=== PATIENT | male | born 1980 | race Two or more races ===

== ENCOUNTER 2024-12-02 20:03 | Inpatient (IN) | payer OTHER ==
[~2024-12-02] VITALS: Ht 175.3 cm; Wt 136.1 kg
[2024-12-02] MEDS ORDERED: COZAAR50 MG PO (20:26)
[2024-12-02] MEDS ORDERED: TOPROL XL100 M1 PO (20:26)
--- NOTE | 2024-12-02 20:40 | NUR ---
PACIENTE ALERTA Y ORIENTADO X3. REFIERE DOLOR ABDOMINAL, KATHLEEN EN LA ORINA Y AL EVACUAR. PACIENTE CON HX DE DIVERTICULITIS. SE ESTIMAN VITALES Y SE UBICA.
[2024-12-02] MEDS ORDERED: FAMOtidine 10 MG/ML (4ML VIAL) IV ONE (21:00)
[2024-12-02] MEDS ORDERED: TRAMADOL HCL 50 MG TABLET PO ONE (21:00)
--- NOTE | 2024-12-02 21:12 | NUR ---
SE EDUCA A PTE SOBRE [place] MEDICO, SE FABIENNE MUESTRAS DE LABORATORIO UTILIZANDO MEDIDAS ASEPTICAS. SE COLOCA H/L GABY DE EDEMA. SE ADMINISTRAN MEDICAMENTOS ARSALAN ORDEN MEDICA, PTE TOLERA LOS MISMOS. SE NOTIFICA ESTUDIO DE CT IV PENDIENTE A REALIZAR.
[2024-12-02 21:17] LABS: HEMATOCRIT 39.9 % (39.0-48.0); HEMOGLOBIN 12.7 g/dL (13-16.00); MEAN CELL VOLUME 84.7 fL (80.0-100.00); MEAN CORPUSCULAR HGB CONC 31.8 g/dl (32.0-36.0); PLATELET COUNT 314 K/uL (150-450); RED BLOOD COUNT 4.71 M/uL (4.00-6.00); RED CELL DISTRIBUTION WIDTH 19.5 % (11.5-14.5)
[2024-12-02 21:40] LABS: INR 1.18; PARTIAL THROMBOPLASTIN TIME 26.5 SECONDS (22.0-34.0); PROTHROMBIN TIME 12.7 SECONDS (9.0-11.5)
[2024-12-02 21:43] LABS: ALBUMIN 3.3 gm/dL (3.4-5.0); BILIRUBIN TOTAL 0.42 mg/dL (0.3-1.2); CALCIUM 9.2 mg/dL (8.5-10.1); CREATININE SERUM 1.01 mg/dL (0.70-1.30); GFR 79.53; GLOBULINA 4.5 G/DL (2.4-3.5); POTASSIUM 4.27 mEq/L (3.5-5.1); TOTAL PROTEIN 7.8 gm/dL (6.4-8.2)
[2024-12-03 05:02] LABS: URINE APPEARANCE Clear; URINE BILIRRUBIN Negative (NEGATIVE); URINE BLOOD Negative; URINE COLOR Yellow; URINE GLUCOSE Negative (NEGATIVE); URINE KETONE Negative (NEGATIVE); URINE LEUKOCYTE Negative; URINE NITRATE Negative; URINE PROTEIN Negative (NEGATIVE); URINE UROBILINOGEN 0.2 E.U./dl
[2024-12-03 05:03] LABS: URINE BACTERIA 20.7 uL (0.0-1933); URINE EPITHELIAL CELLS 3.3 uL (0.0-38.8); URINE WBC 3.4 uL (0.0-23.2)
[2024-12-03 05:19] LABS: URINE RBC 1.4 uL (0.0-20.8)
[2024-12-03] MEDS ORDERED: KETOROLAC TROMETHAMINE 30 MG VIAL IV STA (06:49)
[2024-12-03] MEDS ORDERED: PIPERACILLIN/TAZOBACTAM SODIUM 3.375 GM VIAL IV STA (06:50)
[2024-12-03] MEDS ORDERED: 0.9 % SODIUM CHLORIDE 1,000 ML IV STA (06:58)
[2024-12-03] MEDS ORDERED: MORPHINE SULFATE 4 MG/ML VIAL IV STA (06:58)
[2024-12-03] MEDS ORDERED: HYOSCYAMINE SULFATE 0.125 MG TAB.SUBL SL ONE (07:00)
--- NOTE | 2024-12-03 07:22 | NUR ---
SE RECIBE PACIENTE DEL TURNO ANTERIOR QUE SE ENCUENTRA ALERTA Y ORIENTADO X3. CANALIZADO EN RA CON #[id number], PATENTE GABY DE EDEMA Y PROCESOS INFECCIOSOS. SE MANTIENE EN OBSERVACION POR CAMBIOS SIGNIFICATIVOS.
[2024-12-03] MEDS ORDERED: ONDANSETRON HCL 4 MG in 0.9 % SODIUM CHLORIDE 50 ML IV PRN (17:30)
[2024-12-03] MEDS ORDERED: KETOROLAC TROMETHAMINE 30 MG VIAL IV PRN (17:30)
[2024-12-03] MEDS ORDERED: 0.9 % SODIUM CHLORIDE 1,000 ML IV SCH (17:30)
[2024-12-03] MEDS ORDERED: ACETAMINOPHEN 325 MG TABLET PO PRN (17:30)
[2024-12-03] MEDS ORDERED: MORPHINE SULFATE 4 MG/ML VIAL IV PRN (17:30)
[2024-12-03] MEDS ORDERED: hydrALAZINE HCL 20 MG VIAL IV PRN (17:45)
[2024-12-03] MEDS ORDERED: PIPERACILLIN/TAZOBACTAM SODIUM 3.375 GM in DEXTROSE 5 % IN WATER 100 ML IV SCH (18:00)
[2024-12-03] MEDS ORDERED: DIPHENHYDRAMINE HCL 12.5 MG/5 ML BLIST.PACK PO ONE (18:15)
[2024-12-03 18:34] VITALS: BP 160/96; O2SAT 99
[2024-12-03 19:34] LABS: COVID-19 AG NEGATIVE (NEGATIVE)
[2024-12-03 22:43] VITALS: BP 152/80; O2SAT 98
[2024-12-04 00:55] VITALS: BP 122/82; O2SAT 96
[2024-12-04] MEDS ORDERED: ACETAMINOPHEN 500 MG GEL..CAP PO PRN (07:15)
[2024-12-04] MEDS ORDERED: MORPHINE SULFATE 4 MG/ML CARTRIDGE IV PRN (07:15)
[2024-12-04 08:25] VITALS: BP 174/114
[2024-12-04] MEDS ORDERED: LOSARTAN POTASSIUM 50 MG TABLET PO SCH (09:00)
[2024-12-04] MEDS ORDERED: ENOXAPARIN SODIUM 40 MG/0.4 ML SYRINGE SUBCUTANEO SCH (09:00)
[2024-12-04 10:50] VITALS: BP 152/93
[2024-12-04] MEDS ORDERED: AMLODIPINE BESYLATE 5 MG TABLET PO STA (12:08)
[2024-12-04 14:38] VITALS: BP 146/97
[2024-12-04 16:23] VITALS: BP 136/92
[2024-12-05 01:30] VITALS: BP 157/106; O2SAT 100
[2024-12-05 08:49] VITALS: BP 154/102; O2SAT 96
[2024-12-05] MEDS ORDERED: LOSARTAN POTASSIUM 50 MG TABLET PO SCH (09:00)
[2024-12-05] MEDS ORDERED: AMLODIPINE BESYLATE 5 MG TABLET PO SCH (09:00)
[2024-12-05 17:52] VITALS: BP 149/95; O2SAT 98
[2024-12-06 02:47] VITALS: BP 153/107; O2SAT 97
[2024-12-06] MEDS ORDERED: LOSARTAN POTASSIUM 100 MG TABLET PO SCH (09:00)
[2024-12-06] MEDS ORDERED: AMLODIPINE BESYLATE 10 MG TABLET PO SCH (09:00)
[2024-12-06 09:58] VITALS: BP 164/11; BP 164/111; O2SAT 98
[2024-12-06 11:05] LABS: free psa 0.02 ng/mL; total psa 0.2 ng/mL (0.0-4.0)
[2024-12-06] MEDS ORDERED: LACTOBACILLUS ACIDOPHILUS 1 CAP CAP PO SCH ×2 (17:00→21:00)
[2024-12-06] MEDS ORDERED: FAMOTIDINE/PF 20 MG in 0.9 % SODIUM CHLORIDE 100 ML IV SCH (17:00)
[2024-12-06] MEDS ORDERED: TRAMADOL HCL 50 MG TABLET PO SCH (17:04)
[2024-12-06 18:34] VITALS: BP 141/94
[2024-12-07 01:53] VITALS: BP 142/85; O2SAT 98
[2024-12-07 07:33] LABS: HEMOGLOBIN 12.9 g/dL (13-16.00); MEAN CELL VOLUME 83.6 fL (80.0-100.00); MEAN CORPUSCULAR HGB CONC 32.2 g/dl (32.0-36.0); PLATELET COUNT 260 K/uL (150-450); RED BLOOD COUNT 4.78 M/uL (4.00-6.00); RED CELL DISTRIBUTION WIDTH 19.1 % (11.5-14.5)
[2024-12-07 08:01] LABS: ALBUMIN 3.2 gm/dL (3.4-5.0); CALCIUM 8.6 mg/dL (8.5-10.1); CREATININE SERUM 0.64 mg/dL (0.70-1.30); GFR 134.64; MAGNESIUM 1.8 mg/dL (1.8-2.4); POTASSIUM 3.81 mEq/L (3.5-5.1)
[2024-12-07 08:05] LABS: C-REACTIVE PROTEIN 0.68 MG/DL (0.00-0.29)
[2024-12-07 08:15] VITALS: BP 148/94
[2024-12-07 08:23] LABS: ERYTHROCYTE SEDIMENTATION RATE 68 mm/hr
[2024-12-07] MEDS ORDERED: BARIUM SULFATE 450 ML ORAL.SUSP PO NR (10:30)
[2024-12-07] MEDS ORDERED: DIATRIZOATE MEGLUMINE, SODIUM 30 ML BOTTLE PO NR (11:00)
[2024-12-07 17:17] VITALS: BP 148/90
[2024-12-08 02:06] VITALS: BP 157/85; O2SAT 98
[2024-12-08 08:03] VITALS: BP 146/99
[2024-12-08] MEDS ORDERED: DIPHENHYDRAMINE HCL 50 MG/ML VIAL 1ML IV PRN (13:15)
[2024-12-08 17:35] VITALS: BP 144/97
[2024-12-09 02:35] VITALS: BP 127/89; O2SAT 98
[2024-12-09 10:00] VITALS: BP 142/90; O2SAT 97
[2024-12-09 18:19] VITALS: BP 138/93
[2024-12-09 22:25] LABS: ABG PH 7.421 (7.35-7.45); ABG PO2 83.3 mmHg (80-100); ABG pCO2 40.6 mmHg (35-45); BASE EXCESS 1.3 mmol/l; BICARBONATE 25.8 mmol/l (23-25); Tco2 27.1 mmol/l; allen test SATISFACTORY; mode ROOM AIR; o2 21 %; puncture site RADIAL LEFT
[2024-12-09 22:26] LABS: SaO2 96.4 %
[2024-12-10 02:32] VITALS: BP 149/97; O2SAT 98
[2024-12-10 03:30] VITALS: BP 135/85
[2024-12-10 08:22] LABS: CALCIUM 9.2 mg/dL (8.5-10.1); CREATININE SERUM 0.98 mg/dL (0.70-1.30); GFR 82.34; POTASSIUM 4.15 mEq/L (3.5-5.1)
[2024-12-10 10:00] VITALS: BP 166/83; O2SAT 98
[2024-12-10 14:48] LABS: HEMATOCRIT 41.7 % (39.0-48.0); HEMOGLOBIN 13.6 g/dL (13-16.00); MEAN CELL VOLUME 82.4 fL (80.0-100.00); MEAN CORPUSCULAR HEMOGLOBIN 26.9 pg (27.00-32.0); MEAN CORPUSCULAR HGB CONC 32.7 g/dl (32.0-36.0); PLATELET COUNT 272 K/uL (150-450); RED BLOOD COUNT 5.06 M/uL (4.00-6.00); RED CELL DISTRIBUTION WIDTH 19.8 % (11.5-14.5)
[2024-12-10 17:35] LABS: ob NEGATIVE (NEGATIVE)
[2024-12-10 20:08] VITALS: BP 151/100; O2SAT 98
[2024-12-11 01:39] VITALS: BP 157/104
[2024-12-11 09:39] VITALS: BP 140/90
[2024-12-11] MEDS ORDERED: KETOROLAC TROMETHAMINE 30 MG VIAL IV SCH (13:00)
[2024-12-11] MEDS ORDERED: MORPHINE SULFATE 4 MG/ML VIAL IV PRN (15:30)
[2024-12-11] MEDS ORDERED: NIFEDIPINE 30 MG TAB.SA.OSM PO SCH (17:00)
[2024-12-11 17:44] VITALS: BP 166/103; O2SAT 98
[2024-12-11 22:24] VITALS: BP 142/85
[2024-12-12 01:34] VITALS: BP 150/98
[2024-12-12 03:03] LABS: PH,URINE 6.5 (5.0-8.0); URINE APPEARANCE Clear; URINE BILIRRUBIN Negative (NEGATIVE); URINE BLOOD Negative; URINE COLOR Yellow; URINE GLUCOSE Negative (NEGATIVE); URINE KETONE Negative (NEGATIVE); URINE LEUKOCYTE Negative; URINE NITRATE Negative; URINE PROTEIN Trace (NEGATIVE)
[2024-12-12 03:07] LABS: URINE BACTERIA 20.7 uL (0.0-1933); URINE EPITHELIAL CELLS 8.5 uL (0.0-38.8); URINE RBC 2.9 uL (0.0-20.8); URINE WBC 18.1 uL (0.0-23.2)
[2024-12-12] MEDS ORDERED: MORPHINE SULFATE 4 MG,MORPHINE SULFATE 2 MG IV PRN (07:57)
[2024-12-12 08:32] VITALS: BP 159/91; O2SAT 95
[2024-12-12] MEDS ORDERED: BISACODYL 5 MG TABLET.EC PO NR ×2 (11:30→13:00)
[2024-12-12 12:30] LABS: HEMOGLOBIN 15.4 g/dL (13-16.00); MEAN CELL VOLUME 82.7 fL (80.0-100.00); MEAN CORPUSCULAR HEMOGLOBIN 27.1 pg (27.00-32.0); MEAN CORPUSCULAR HGB CONC 32.8 g/dl (32.0-36.0); PLATELET COUNT 296 K/uL (150-450); RED BLOOD COUNT 5.69 M/uL (4.00-6.00); RED CELL DISTRIBUTION WIDTH 20.1 % (11.5-14.5)
[2024-12-12 12:58] LABS: ALBUMIN 3.9 gm/dL (3.4-5.0); CALCIUM 9.4 mg/dL (8.5-10.1); GFR 80.44; MAGNESIUM 2.1 mg/dL (1.8-2.4); PHOSPHOROUS 3.9 mg/dL (2.5-4.9); POTASSIUM 4.06 mEq/L (3.5-5.1)
[2024-12-12] MEDS ORDERED: POLYETHYLENE GLYCOL 3350 238 GM POWDER PO NR (13:00)
[2024-12-12 18:22] VITALS: BP 122/85; O2SAT 97
[2024-12-12] MEDS ORDERED: PEG3350/SOD SULF,BICARB,CL/KCL 4,000 ML GALLON PO ONE (20:45)
[2024-12-13 01:18] VITALS: BP 122/91
[2024-12-13] MEDS ORDERED: NA PHOS,M-B/NA PHOS,DI-BA 1 BOTTLE ENEMA RECTAL STA (08:43)
[2024-12-13 08:51] VITALS: BP 129/98
[2024-12-13] MEDS ORDERED: MIDAZOLAM HCL 2 MG/2 ML VIAL IV ONE (14:30)
[2024-12-13] MEDS ORDERED: fentaNYL CITRATE 50 MCG/ML AMPUL IV PUSH ONE (14:30)
[2024-12-13] MEDS ORDERED: FLUMAZENIL 0.5 MG/5 ML ML IV ONE (14:30)
[2024-12-13] MEDS ORDERED: DIPHENHYDRAMINE HCL 50 MG/ML VIAL 1ML IV ONE (14:30)
[2024-12-13] MEDS ORDERED: POLYETHYLENE GLYCOL 3350 17 GM BLIST.PACK PO SCH (17:00)
[2024-12-13 17:12] VITALS: BP 115/64; O2SAT 100
[2024-12-14 01:02] VITALS: BP 121/87
[2024-12-14 08:54] VITALS: BP 128/83; O2SAT 96
[2024-12-14 17:22] VITALS: BP 130/89
[2024-12-14] MEDS ORDERED: BISACODYL 5 MG TABLET.EC PO STA (19:49)
[2024-12-14] MEDS ORDERED: PEG3350/SOD SULF,BICARB,CL/KCL 4,000 ML GALLON PO STA (19:49)
[2024-12-14] MEDS ORDERED: BISACODYL 5 MG TABLET.EC PO ONE ×2 (20:24→20:48)
[2024-12-14] MEDS ORDERED: PEG3350/SOD SULF,BICARB,CL/KCL 4,000 ML GALLON PO ONE (20:25)
[2024-12-15 01:11] VITALS: BP 152/84
[2024-12-15 09:50] VITALS: BP 118/76; O2SAT 100
[2024-12-15] MEDS ORDERED: ENOXAPARIN SODIUM 40 MG/0.4 ML SYRINGE SUBCUTANEO SCH (20:30)
[2024-12-15 21:14] VITALS: BP 164/97
[2024-12-16 02:45] VITALS: BP 108/77; O2SAT 92
[2024-12-16 08:28] LABS: HEMATOCRIT 39.3 % (39.0-48.0); HEMOGLOBIN 12.8 g/dL (13-16.00); MEAN CELL VOLUME 83.1 fL (80.0-100.00); MEAN CORPUSCULAR HGB CONC 32.5 g/dl (32.0-36.0); PLATELET COUNT 238 K/uL (150-450); RED BLOOD COUNT 4.73 M/uL (4.00-6.00); RED CELL DISTRIBUTION WIDTH 19.7 % (11.5-14.5)
[2024-12-16 08:52] LABS: ALBUMIN 2.9 gm/dL (3.4-5.0); BILIRUBIN TOTAL 1.15 mg/dL (0.3-1.2); CALCIUM 8.4 mg/dL (8.5-10.1); CREATININE SERUM 0.84 mg/dL (0.70-1.30); GFR 98.37; GLOBULINA 3.7 G/DL (2.4-3.5); POTASSIUM 3.78 mEq/L (3.5-5.1); TOTAL PROTEIN 6.6 gm/dL (6.4-8.2)
[2024-12-16 09:06] VITALS: BP 131/78; O2SAT 95
[2024-12-16] MEDS ORDERED: SIMETHICONE 125 MG CAPSULE PO NR (11:00)
[2024-12-16] MEDS ORDERED: ONDANSETRON HCL 2 MG/ML VIAL ONE (16:52)
[2024-12-16 18:07] VITALS: BP 155/97
[2024-12-16] MEDS ORDERED: MEROPENEM 1,000 MG VIAL IV SCH (19:10)
[2024-12-16] MEDS ORDERED: MEROPENEM 1,000 MG VIAL IV STA (19:10)
[2024-12-16] MEDS ORDERED: MORPHINE SULFATE 4 MG/ML CARTRIDGE IV PRN (19:13)
[2024-12-16 22:31] VITALS: BP 127/86
[2024-12-16] MEDS ORDERED: MORPHINE SULFATE 4 MG/ML CARTRIDGE IV SCH (22:45)
[2024-12-17 02:00] VITALS: BP 123/85; O2SAT 95
[2024-12-17] MEDS ORDERED: SIMETHICONE 125 MG CAPSULE PO SCH (09:00)
[2024-12-17] MEDS ORDERED: MEROPENEM 500 MG/VIAL VIAL IV NR (09:00)
[2024-12-17 09:08] VITALS: BP 110/72; O2SAT 95
[2024-12-17] MEDS ORDERED: MEROPENEM 500 MG/VIAL VIAL IV SCH (14:00)
[2024-12-17 18:57] VITALS: BP 125/92
[2024-12-18 01:42] VITALS: BP 126/88; O2SAT 98
[2024-12-18 06:30] LABS: HEMATOCRIT 38.5 % (39.0-48.0); HEMOGLOBIN 12.4 g/dL (13-16.00); MEAN CELL VOLUME 85.6 fL (80.0-100.00); MEAN CORPUSCULAR HEMOGLOBIN 27.5 pg (27.00-32.0); MEAN CORPUSCULAR HGB CONC 32.1 g/dl (32.0-36.0); PLATELET COUNT 268 K/uL (150-450)
[2024-12-18 07:27] LABS: CREATININE SERUM 0.67 mg/dL (0.70-1.30); GFR 127.7; PHOSPHOROUS 3.9 mg/dL (2.5-4.9); POTASSIUM 4.68 mEq/L (3.5-5.1)
[2024-12-18 09:33] VITALS: BP 124/89; O2SAT 99
[2024-12-18] MEDS ORDERED: EMOLLIENTS 6 OZ BOTTLE TOP SCH (17:00)
[2024-12-18 19:16] VITALS: BP 168/90
[2024-12-18] MEDS ORDERED: CYCLOBENZAPRINE HCL 5 MG TABLET PO SCH (21:00)
[2024-12-19 02:41] VITALS: BP 113/76; O2SAT 98
[2024-12-19 08:58] VITALS: BP 131/85; O2SAT 95
[2024-12-19 14:06] LABS: HEMATOCRIT 45.2 % (39.0-48.0); HEMOGLOBIN 14.6 g/dL (13-16.00); MEAN CORPUSCULAR HEMOGLOBIN 27.2 pg (27.00-32.0); MEAN CORPUSCULAR HGB CONC 32.3 g/dl (32.0-36.0); PLATELET COUNT 395 K/uL (150-450); RED BLOOD COUNT 5.38 M/uL (4.00-6.00); RED CELL DISTRIBUTION WIDTH 19.4 % (11.5-14.5)
[2024-12-19 14:38] LABS: INR 1.11; PARTIAL THROMBOPLASTIN TIME 29.5 SECONDS (22.0-34.0)
[2024-12-19 15:28] LABS: CALCIUM 9.9 mg/dL (8.5-10.1); CREATININE SERUM 0.71 mg/dL (0.70-1.30); GFR 119.44; POTASSIUM 4.89 mEq/L (3.5-5.1)
[2024-12-19 17:00] VITALS: BP 125/87; O2SAT 95
[2024-12-20 03:05] VITALS: BP 125/77; O2SAT 99
[2024-12-20 09:16] VITALS: BP 122/86
[2024-12-20] MEDS ORDERED: LIDOCAINE HCL 1%/EPINEPHRINE 20ML VIAL IJ ONE (11:14)
[2024-12-20] MEDS ORDERED: BUPIVACAINE HCL/Mpf 0.5% 10ML VIAL ONE (11:14)
[2024-12-20] MEDS ORDERED: CEFTRIAXONE SODIUM 2,000 MG VIAL ONE (13:12)
[2024-12-20] MEDS ORDERED: METRONIDAZOLE/SODIUM CHLORIDE 500 MG/100 ML PIGGYBACK IV ONE (13:12)
[2024-12-20] MEDS ORDERED: SUGAMMADEX SODIUM 200 MG/2 ML VIAL IV ONE ×2 (18:54→20:00)
[2024-12-20] MEDS ORDERED: RINGERS SOLUTION,LACTATED 1,000 ML IV SCH (20:00)
[2024-12-20] MEDS ORDERED: MORPHINE SULFATE 8 MG,MORPHINE SULFATE 2 MG IV SCH (21:00)
[2024-12-20] MEDS ORDERED: MORPHINE SULFATE 4 MG/ML CARTRIDGE IV SCH (21:00)
[2024-12-20 22:00] LABS: HEMATOCRIT 42.7 % (39.0-48.0); HEMOGLOBIN 13.8 g/dL (13-16.00); MEAN CELL VOLUME 83.1 fL (80.0-100.00); MEAN CORPUSCULAR HEMOGLOBIN 26.9 pg (27.00-32.0); MEAN CORPUSCULAR HGB CONC 32.4 g/dl (32.0-36.0); PLATELET COUNT 377 K/uL (150-450); RED BLOOD COUNT 5.14 M/uL (4.00-6.00); RED CELL DISTRIBUTION WIDTH 18.8 % (11.5-14.5)
[2024-12-20 22:05] LABS: ALBUMIN 2.9 gm/dL (3.4-5.0); CALCIUM 9.1 mg/dL (8.5-10.1); CREATININE SERUM 0.82 mg/dL (0.70-1.30); GFR 101.15; PHOSPHOROUS 4.9 mg/dL (2.5-4.9); POTASSIUM 4.32 mEq/L (3.5-5.1)
[2024-12-20 22:32] VITALS: BP 119/95
[2024-12-20] MEDS ORDERED: MORPHINE SULFATE 4 MG/ML CARTRIDGE IV STA (22:37)
[2024-12-20] MEDS ORDERED: fentaNYL 25 MCG PATCH.TD72 TD SCH (23:15)
[2024-12-21] VITALS (10 sets, daily range): BP systolic 131–160; BP diastolic 82–115; O2SAT 93–98
[2024-12-21] MEDS ORDERED: ACETAMINOPHEN 500 MG GEL..CAP PO SCH
[2024-12-21] MEDS ORDERED: GABAPENTIN 300 MG CAPSULE PO SCH (01:00)
[2024-12-21] MEDS ORDERED: ALBUTEROL SULFATE 3 ML/2.5 MG AMPUL.NEB IH SCH (01:00)
[2024-12-21] MEDS ORDERED: MORPHINE SULFATE 4 MG/ML CARTRIDGE IV SCH (01:00)
[2024-12-21 08:22] LABS: HEMOGLOBIN 13.3 g/dL (13-16.00); MEAN CELL VOLUME 83.6 fL (80.0-100.00); MEAN CORPUSCULAR HEMOGLOBIN 27.1 pg (27.00-32.0); MEAN CORPUSCULAR HGB CONC 32.4 g/dl (32.0-36.0); PLATELET COUNT 368 K/uL (150-450)
[2024-12-21 08:40] LABS: ALBUMIN 2.6 gm/dL (3.4-5.0); CALCIUM 8.5 mg/dL (8.5-10.1); CREATININE SERUM 0.65 mg/dL (0.70-1.30); GFR 132.25; MAGNESIUM 1.7 mg/dL (1.8-2.4); PHOSPHOROUS 3.8 mg/dL (2.5-4.9); POTASSIUM 4.12 mEq/L (3.5-5.1)
[2024-12-21] MEDS ORDERED: POLYETHYLENE GLYCOL 3350 17 GM BLIST.PACK PO SCH (09:00)
[2024-12-21] MEDS ORDERED: MAGNESIUM CHLORIDE 70 MG TABLET.DR PO SCH (09:00)
[2024-12-21] MEDS ORDERED: MEPERIDINE HCL/PF 50 MG/ML VIAL IM PRN (12:30)
[2024-12-21] MEDS ORDERED: MEPERIDINE HCL/PF 50 MG/ML VIAL IM SCH (13:00)
[2024-12-21] MEDS ORDERED: METOPROLOL TARTRATE 25 MG TABLET PO SCH (14:00)
[2024-12-21] MEDS ORDERED: MEPERIDINE HCL/PF 50 MG/ML VIAL IM STA (16:29)
[2024-12-21] MEDS ORDERED: ENOXAPARIN SODIUM 40 MG/0.4 ML SYRINGE SUBCUTANEO SCH (17:00)
[2024-12-21] MEDS ORDERED: MAGNESIUM SULFATE 50% 1,000 MG/2 ML VIAL IV ONE (20:30)
[2024-12-21] MEDS ORDERED: FAMOtidine 20 MG TABLET PO SCH (20:30)
[2024-12-22] VITALS (12 sets, daily range): BP systolic 113–155; BP diastolic 71–93; O2SAT 92–95
[2024-12-22 08:01] LABS: HEMOGLOBIN 12.5 g/dL (13-16.00); MEAN CELL VOLUME 83.5 fL (80.0-100.00); MEAN CORPUSCULAR HEMOGLOBIN 26.7 pg (27.00-32.0); PLATELET COUNT 290 K/uL (150-450); RED BLOOD COUNT 4.67 M/uL (4.00-6.00); RED CELL DISTRIBUTION WIDTH 18.7 % (11.5-14.5)
[2024-12-22 08:11] LABS: ALBUMIN 2.1 gm/dL (3.4-5.0); CALCIUM 7.8 mg/dL (8.5-10.1); CREATININE SERUM 0.6 mg/dL (0.70-1.30); GFR 145.05; MAGNESIUM 1.9 mg/dL (1.8-2.4); PHOSPHOROUS 2.9 mg/dL (2.5-4.9); POTASSIUM 3.86 mEq/L (3.5-5.1)
[2024-12-22] MEDS ORDERED: METOPROLOL TARTRATE 25 MG TABLET PO SCH (13:00)
[2024-12-22] MEDS ORDERED: METOPROLOL TARTRATE 5MG/5ML AMPUL IV STA (13:38)
[2024-12-22] MEDS ORDERED: POTASSIUM PHOS,M-BASIC-D-BASIC 15 MM in 0.9 % SODIUM CHLORIDE 250 ML IV NR (17:00)
[2024-12-22] MEDS ORDERED: MAGNESIUM SULFATE IN WATER 2 GM/50 ML PIGGYBAG IV NR (17:00)
[2024-12-22] MEDS ORDERED: IPRATROPIUM BROMIDE 0.5 MG/2.5 ML AMPUL.NEB IH SCH (17:00)
[2024-12-22] MEDS ORDERED: FAMOTIDINE/PF 20 MG/2 ML VIAL IV PUSH SCH (17:00)
[2024-12-22] MEDS ORDERED: 0.9 % SODIUM CHLORIDE 500 ML IV ONE (18:15)
[2024-12-22] MEDS ORDERED: DILTIAZEM HCL 125 MG in 0.9 % SODIUM CHLORIDE 100 ML IV SCH (18:28)
[2024-12-23] VITALS (19 sets, daily range): BP systolic 104–2120; BP diastolic 66–99; O2SAT 92–98
[2024-12-23 07:35] LABS: HEMATOCRIT 39.5 % (39.0-48.0); HEMOGLOBIN 12.8 g/dL (13-16.00); MEAN CELL VOLUME 84.4 fL (80.0-100.00); MEAN CORPUSCULAR HEMOGLOBIN 27.3 pg (27.00-32.0); MEAN CORPUSCULAR HGB CONC 32.4 g/dl (32.0-36.0); PLATELET COUNT 386 K/uL (150-450); RED BLOOD COUNT 4.68 M/uL (4.00-6.00); RED CELL DISTRIBUTION WIDTH 18.5 % (11.5-14.5)
[2024-12-23 08:18] LABS: ALBUMIN 2.3 gm/dL (3.4-5.0); CALCIUM 8.8 mg/dL (8.5-10.1); CREATININE SERUM 0.81 mg/dL (0.70-1.30); GFR 102.59; MAGNESIUM 2.3 mg/dL (1.8-2.4); PHOSPHOROUS 3.9 mg/dL (2.5-4.9); POTASSIUM 4.03 mEq/L (3.5-5.1)
[2024-12-23] MEDS ORDERED: PANTOPRAZOLE SODIUM 40 MG/VIAL VIAL IV PUSH SCH (09:00)
[2024-12-23] MEDS ORDERED: MEPERIDINE HCL/PF 50 MG/ML VIAL IM PRN ×2 (13:30→18:30)
[2024-12-23] MEDS ORDERED: MEPERIDINE HCL/PF 50 MG,MEPERIDINE HCL/PF 25 MG IM SCH (18:30)
[2024-12-24] VITALS (20 sets, daily range): BP systolic 12–149; BP diastolic 77–102; O2SAT 90–96
[2024-12-24 07:16] LABS: ALBUMIN 2.3 gm/dL (3.4-5.0); CALCIUM 8.8 mg/dL (8.5-10.1); CREATININE SERUM 0.72 mg/dL (0.70-1.30); GFR 117.53; PHOSPHOROUS 3.4 mg/dL (2.5-4.9); POTASSIUM 4.44 mEq/L (3.5-5.1)
[2024-12-24 07:24] LABS: HEMATOCRIT 38.6 % (39.0-48.0); HEMOGLOBIN 12.8 g/dL (13-16.00); MEAN CELL VOLUME 82.9 fL (80.0-100.00); MEAN CORPUSCULAR HEMOGLOBIN 27.4 pg (27.00-32.0); PLATELET COUNT 425 K/uL (150-450); RED BLOOD COUNT 4.65 M/uL (4.00-6.00); RED CELL DISTRIBUTION WIDTH 18.6 % (11.5-14.5)
[2024-12-24] MEDS ORDERED: PROMETHAZINE HCL 25 MG/ML AMPUL IM PRN (09:00)
[2024-12-25] VITALS (16 sets, daily range): BP systolic 109–159; BP diastolic 80–109; O2SAT 90–98
[2024-12-25] MEDS ORDERED: DIATRIZOATE MEGLUMINE, SODIUM 30 ML BOTTLE PO NR (10:00)
[2024-12-26] VITALS (20 sets, daily range): BP systolic 106–146; BP diastolic 78–114; O2SAT 94–100
[2024-12-26 06:20] LABS: HEMOGLOBIN 12.7 g/dL (13-16.00); MEAN CELL VOLUME 82.9 fL (80.0-100.00); MEAN CORPUSCULAR HEMOGLOBIN 26.9 pg (27.00-32.0); MEAN CORPUSCULAR HGB CONC 32.4 g/dl (32.0-36.0); PLATELET COUNT 448 K/uL (150-450); RED BLOOD COUNT 4.71 M/uL (4.00-6.00); RED CELL DISTRIBUTION WIDTH 18.8 % (11.5-14.5)
[2024-12-26 06:47] LABS: ALBUMIN 2.2 gm/dL (3.4-5.0); CALCIUM 8.7 mg/dL (8.5-10.1); CREATININE SERUM 0.55 mg/dL (0.70-1.30); GFR 160.37; MAGNESIUM 1.5 mg/dL (1.8-2.4); PHOSPHOROUS 2.9 mg/dL (2.5-4.9); POTASSIUM 3.84 mEq/L (3.5-5.1)
[2024-12-26] MEDS ORDERED: MAGNESIUM SULFATE IN WATER 50 ML IV NR (10:15)
[2024-12-26] MEDS ORDERED: AMINO ACIDS 4.25 %/DEXTROSE 5% 1,000 ML PERIFERAL SCH (17:00)
[2024-12-26] MEDS ORDERED: POTASSIUM PHOS,M-BASIC-D-BASIC 15 MM in 0.9 % SODIUM CHLORIDE 250 ML IV ONE (20:45)
[2024-12-26] MEDS ORDERED: POTASSIUM PHOS,M-BASIC-D-BASIC 45mM/15ml VIAL IV ONE (21:16)
[2024-12-27] VITALS (12 sets, daily range): BP systolic 93–117; BP diastolic 72–92; O2SAT 90–98
[2024-12-27 06:47] LABS: HEMATOCRIT 35.6 % (39.0-48.0); HEMOGLOBIN 11.5 g/dL (13-16.00); MEAN CORPUSCULAR HEMOGLOBIN 27.2 pg (27.00-32.0); MEAN CORPUSCULAR HGB CONC 32.4 g/dl (32.0-36.0); PLATELET COUNT 396 K/uL (150-450); RED BLOOD COUNT 4.23 M/uL (4.00-6.00); RED CELL DISTRIBUTION WIDTH 18.2 % (11.5-14.5)
[2024-12-27 07:41] LABS: ALBUMIN 1.9 gm/dL (3.4-5.0); CALCIUM 7.7 mg/dL (8.5-10.1); CREATININE SERUM 0.42 mg/dL (0.70-1.30); GFR 218.91; MAGNESIUM 1.6 mg/dL (1.8-2.4); PHOSPHOROUS 4.1 mg/dL (2.5-4.9); POTASSIUM 3.54 mEq/L (3.5-5.1)
[2024-12-27] MEDS ORDERED: MEPERIDINE HCL/PF 50 MG/ML VIAL IM PRN (16:07)
[2024-12-27] MEDS ORDERED: POTASSIUM PHOS,M-BASIC-D-BASIC 15 MM in 0.9 % SODIUM CHLORIDE 250 ML IV NR (16:15)
[2024-12-27] MEDS ORDERED: MAGNESIUM SULFATE IN WATER 2 GM/50 ML PIGGYBAG IV NR (16:30)
[2024-12-28 04:00] VITALS: BP 106/85; O2SAT 88
[2024-12-28 07:12] VITALS: BP 129/99; O2SAT 98
[2024-12-28 07:45] LABS: HEMATOCRIT 39.1 % (39.0-48.0); HEMOGLOBIN 12.7 g/dL (13-16.00); MEAN CORPUSCULAR HGB CONC 32.6 g/dl (32.0-36.0); PLATELET COUNT 497 K/uL (150-450); RED BLOOD COUNT 4.71 M/uL (4.00-6.00); RED CELL DISTRIBUTION WIDTH 18.3 % (11.5-14.5)
[2024-12-28 08:29] LABS: CALCIUM 8.3 mg/dL (8.5-10.1); CREATININE SERUM 0.72 mg/dL (0.70-1.30); GFR 117.53; MAGNESIUM 1.8 mg/dL (1.8-2.4); PHOSPHOROUS 3.9 mg/dL (2.5-4.9); POTASSIUM 4.49 mEq/L (3.5-5.1)
[2024-12-28 12:00] VITALS: BP 107/88; O2SAT 97
[2024-12-28 15:09] VITALS: BP 107/88; O2SAT 98
[2024-12-28] MEDS ORDERED: LINEZOLID IN DEXTROSE 5% 300 ML IV SCH (17:00)
[2024-12-28] MEDS ORDERED: VANCOMYCIN HCL 125 MG CAPSULE PO SCH ×2 (18:00)
[2024-12-28 20:00] VITALS: BP 130/99; O2SAT 95
[2024-12-28] MEDS ORDERED: PANTOPRAZOLE SODIUM 40 MG TABLET.DR PO SCH (21:00)
[2024-12-28 21:38] VITALS: BP 113/78; O2SAT 96
[2024-12-29] VITALS (8 sets, daily range): BP systolic 113–120; BP diastolic 75–81; O2SAT 89–100
[2024-12-30] VITALS (8 sets, daily range): BP systolic 109–117; BP diastolic 74–85; O2SAT 90–99
[2024-12-30] MEDS ORDERED: ONDANSETRON HCL 2 MG/ML VIAL IV PRN (07:00)
[2024-12-30 07:50] LABS: CALCIUM 8.2 mg/dL (8.5-10.1); CREATININE SERUM 0.7 mg/dL (0.70-1.30); GFR 121.41; MAGNESIUM 1.8 mg/dL (1.8-2.4); PHOSPHOROUS 3.8 mg/dL (2.5-4.9); POTASSIUM 3.91 mEq/L (3.5-5.1)
[2024-12-30 08:14] LABS: HEMATOCRIT 35.9 % (39.0-48.0); HEMOGLOBIN 11.4 g/dL (13-16.00); MEAN CELL VOLUME 83.6 fL (80.0-100.00); MEAN CORPUSCULAR HEMOGLOBIN 26.6 pg (27.00-32.0); MEAN CORPUSCULAR HGB CONC 31.8 g/dl (32.0-36.0); PLATELET COUNT 493 K/uL (150-450)
[2024-12-30] MEDS ORDERED: MAGNESIUM SULFATE IN WATER 2 GM/50 ML PIGGYBAG IV NR (17:00)
[2024-12-30] MEDS ORDERED: NAPH,MB-DB/K PH,MBDB 1 PKT PACKET PO SCH (17:00)
[2024-12-31 00:20] VITALS: BP 118/78; O2SAT 92
[2024-12-31 05:10] VITALS: O2SAT 96
[2024-12-31 08:00] VITALS: BP 119/79; O2SAT 97
[2024-12-31 09:05] VITALS: O2SAT 90
[2024-12-31 12:40] VITALS: O2SAT 90
[2024-12-31 16:00] VITALS: BP 125/89; O2SAT 98
[2025-01-01] VITALS (9 sets, daily range): BP systolic 118–123; BP diastolic 76–89; O2SAT 90–99
[2025-01-01 10:56] LABS: HEMATOCRIT 38.6 % (39.0-48.0); HEMOGLOBIN 12.2 g/dL (13-16.00); MEAN CELL VOLUME 83.9 fL (80.0-100.00); MEAN CORPUSCULAR HEMOGLOBIN 26.6 pg (27.00-32.0); MEAN CORPUSCULAR HGB CONC 31.7 g/dl (32.0-36.0); PLATELET COUNT 565 K/uL (150-450); RED CELL DISTRIBUTION WIDTH 18.1 % (11.5-14.5)
[2025-01-01 11:32] LABS: ALBUMIN 2.3 gm/dL (3.4-5.0); BILIRUBIN TOTAL 0.37 mg/dL (0.3-1.2); CALCIUM 8.9 mg/dL (8.5-10.1); CREATININE SERUM 0.62 mg/dL (0.70-1.30); GFR 139.66; GLOBULINA 4.1 G/DL (2.4-3.5); POTASSIUM 4.91 mEq/L (3.5-5.1); TOTAL PROTEIN 6.4 gm/dL (6.4-8.2)
[2025-01-01] MEDS ORDERED: ONDANSETRON HCL 2 MG/ML VIAL IV SCH (12:00)
[2025-01-01] MEDS ORDERED: MEROPENEM 1,000 MG VIAL IV SCH (13:00)
[2025-01-02] VITALS (8 sets, daily range): BP systolic 109–177; BP diastolic 75–89; O2SAT 95–99
[2025-01-02] MEDS ORDERED: LACTOBACILLUS ACIDOPHILUS 1 CAP CAP PO SCH (09:00)
[2025-01-02] MEDS ORDERED: LINEZOLID 600 MG TABLET PO SCH (21:00)
[2025-01-03] VITALS (9 sets, daily range): BP systolic 108–117; BP diastolic 75–82; O2SAT 89–100
[2025-01-03 08:09] LABS: HEMATOCRIT 35.4 % (39.0-48.0); HEMOGLOBIN 11.7 g/dL (13-16.00); MEAN CELL VOLUME 82.8 fL (80.0-100.00); MEAN CORPUSCULAR HEMOGLOBIN 27.5 pg (27.00-32.0); MEAN CORPUSCULAR HGB CONC 33.2 g/dl (32.0-36.0); PLATELET COUNT 511 K/uL (150-450); RED BLOOD COUNT 4.28 M/uL (4.00-6.00); RED CELL DISTRIBUTION WIDTH 17.9 % (11.5-14.5)
[2025-01-03 09:00] LABS: ALBUMIN 2.2 gm/dL (3.4-5.0); CALCIUM 8.9 mg/dL (8.5-10.1); CREATININE SERUM 0.7 mg/dL (0.70-1.30); GFR 121.41; MAGNESIUM 1.8 mg/dL (1.8-2.4); PHOSPHOROUS 4.4 mg/dL (2.5-4.9); POTASSIUM 4.53 mEq/L (3.5-5.1)
[2025-01-03] MEDS ORDERED: MAGNESIUM SULFATE IN WATER 2 GM/50 ML PIGGYBAG IV NR (12:30)
[2025-01-03] MEDS ORDERED: SULFAMETHOXAZOLE/TRIMETHOPRIM 16 MG/ML 10ML VIAL IV SCH (13:00)
[2025-01-04 01:26] VITALS: BP 106/67; O2SAT 95
[2025-01-04 10:27] VITALS: BP 112/77; O2SAT 99
[2025-01-04 16:00] VITALS: BP 108/69; O2SAT 98
[2025-01-05] VITALS: BP 114/74; O2SAT 94
[2025-01-05 07:51] LABS: HEMATOCRIT 33.8 % (39.0-48.0); MEAN CELL VOLUME 82.3 fL (80.0-100.00); MEAN CORPUSCULAR HEMOGLOBIN 26.9 pg (27.00-32.0); MEAN CORPUSCULAR HGB CONC 32.6 g/dl (32.0-36.0); PLATELET COUNT 477 K/uL (150-450); RED BLOOD COUNT 4.11 M/uL (4.00-6.00); RED CELL DISTRIBUTION WIDTH 18.4 % (11.5-14.5)
[2025-01-05 08:00] VITALS: BP 111/76; O2SAT 96
[2025-01-05 09:05] LABS: ALBUMIN 2.3 gm/dL (3.4-5.0); CALCIUM 8.3 mg/dL (8.5-10.1); CREATININE SERUM 0.85 mg/dL (0.70-1.30); GFR 97.04; MAGNESIUM 1.6 mg/dL (1.8-2.4); PHOSPHOROUS 4.1 mg/dL (2.5-4.9); POTASSIUM 4.58 mEq/L (3.5-5.1)
[2025-01-05] MEDS ORDERED: MAGNESIUM SULFATE IN WATER 50 ML IV NR (12:00)
[2025-01-05] MEDS ORDERED: MAGNESIUM SULFATE IN WATER 2 GM/50 ML PIGGYBAG IV NR (17:00)
[2025-01-05 17:33] VITALS: BP 110/74; O2SAT 99
[2025-01-06 00:48] VITALS: BP 109/72; O2SAT 96
[2025-01-06 08:00] VITALS: BP 155/90; O2SAT 98
[2025-01-06] MEDS ORDERED: MAGNESIUM SULFATE IN WATER 50 ML IV NR (10:30)
[2025-01-06 16:11] VITALS: BP 114/81; O2SAT 95
[2025-01-07 01:31] VITALS: BP 106/71; O2SAT 95
[2025-01-07 07:35] LABS: HEMATOCRIT 35.7 % (39.0-48.0); HEMOGLOBIN 11.6 g/dL (13-16.00); MEAN CORPUSCULAR HEMOGLOBIN 27.2 pg (27.00-32.0); MEAN CORPUSCULAR HGB CONC 32.4 g/dl (32.0-36.0); PLATELET COUNT 458 K/uL (150-450); RED BLOOD COUNT 4.24 M/uL (4.00-6.00); RED CELL DISTRIBUTION WIDTH 18.3 % (11.5-14.5)
[2025-01-07 08:17] LABS: ALBUMIN 2.6 gm/dL (3.4-5.0); CALCIUM 8.9 mg/dL (8.5-10.1); CREATININE SERUM 0.88 mg/dL (0.70-1.30); GFR 93.23; PHOSPHOROUS 4.5 mg/dL (2.5-4.9); POTASSIUM 5.46 mEq/L (3.5-5.1)
[2025-01-07 16:28] VITALS: BP 109/78; O2SAT 97
[2025-01-08] VITALS: BP 119/78; O2SAT 98
[2025-01-08 07:10] LABS: CALCIUM 9.1 mg/dL (8.5-10.1); CREATININE SERUM 1.01 mg/dL (0.70-1.30); GFR 79.53; MAGNESIUM 1.7 mg/dL (1.8-2.4); PHOSPHOROUS 4.7 mg/dL (2.5-4.9); POTASSIUM 5.55 mEq/L (3.5-5.1)
[2025-01-08 08:00] VITALS: BP 111/78; O2SAT 97
[2025-01-08] MEDS ORDERED: MAGNESIUM SULFATE IN WATER 50 ML IV NR (12:30)
[2025-01-08 17:05] VITALS: BP 125/77; O2SAT 96
[2025-01-08] MEDS ORDERED: VANCOMYCIN HCL 125 MG CAPSULE PO SCH (17:16)
[2025-01-09] VITALS: BP 94/60; O2SAT 91
[2025-01-09 06:57] LABS: CALCIUM 9.1 mg/dL (8.5-10.1); CREATININE SERUM 1.03 mg/dL (0.70-1.30); GFR 77.75; POTASSIUM 5.36 mEq/L (3.5-5.1)
[2025-01-09 08:00] VITALS: BP 113/78; O2SAT 97
[2025-01-09 17:29] VITALS: BP 112/76; O2SAT 98
[2025-01-10 00:22] VITALS: BP 100/71; O2SAT 94
[2025-01-10 06:21] LABS: HEMATOCRIT 35.9 % (39.0-48.0); MEAN CELL VOLUME 82.6 fL (80.0-100.00); MEAN CORPUSCULAR HEMOGLOBIN 27.6 pg (27.00-32.0); MEAN CORPUSCULAR HGB CONC 33.4 g/dl (32.0-36.0); PLATELET COUNT 405 K/uL (150-450); RED BLOOD COUNT 4.35 M/uL (4.00-6.00); RED CELL DISTRIBUTION WIDTH 18.9 % (11.5-14.5)
[2025-01-10 06:41] LABS: ERYTHROCYTE SEDIMENTATION RATE 49 mm/hr
[2025-01-10 06:55] LABS: ALBUMIN 2.9 gm/dL (3.4-5.0); CALCIUM 9.1 mg/dL (8.5-10.1); CREATININE SERUM 1.01 mg/dL (0.70-1.30); GFR 79.53; MAGNESIUM 1.7 mg/dL (1.8-2.4); PHOSPHOROUS 5.1 mg/dL (2.5-4.9); POTASSIUM 5.49 mEq/L (3.5-5.1)
[2025-01-10 07:03] LABS: C-REACTIVE PROTEIN 1.01 MG/DL (0.00-0.29)
[2025-01-10 08:00] VITALS: BP 109/73; O2SAT 95
[2025-01-10] MEDS ORDERED: LOSARTAN POTASSIUM 50 MG TABLET PO SCH (09:00)
[2025-01-10] MEDS ORDERED: SODIUM POLYSTYRENE SULFONATE 30G/8 TSP PO ONE (15:30)
[2025-01-10 17:00] VITALS: BP 114/81; O2SAT 96
[2025-01-11 00:56] VITALS: BP 118/79; O2SAT 97
[2025-01-11 09:07] LABS: CREATININE SERUM 1.06 mg/dL (0.70-1.30); GFR 75.21; POTASSIUM 5.22 mEq/L (3.5-5.1)
[2025-01-11 11:13] VITALS: BP 109/70; O2SAT 98
[2025-01-11 16:00] VITALS: BP 129/64; O2SAT 97
[2025-01-12 00:31] VITALS: BP 117/73; O2SAT 96
[2025-01-12 07:55] LABS: CALCIUM 9.5 mg/dL (8.5-10.1); CREATININE SERUM 0.93 mg/dL (0.70-1.30); GFR 87.47; MAGNESIUM 1.5 mg/dL (1.8-2.4); PHOSPHOROUS 4.3 mg/dL (2.5-4.9); POTASSIUM 5.62 mEq/L (3.5-5.1)
[2025-01-12 08:00] VITALS: BP 117/83; O2SAT 96
[2025-01-12] MEDS ORDERED: SODIUM POLYSTYRENE SULFONATE 30G/8 TSP PO SCH (09:00)
[2025-01-12] MEDS ORDERED: ONDANSETRON HCL 2 MG/ML VIAL IV PRN (12:00)
[2025-01-12] MEDS ORDERED: MAGNESIUM SULFATE IN WATER 2 GM/50 ML PIGGYBAG IV NR (14:00)
[2025-01-12 15:00] VITALS: BP 129/79; O2SAT 98
[2025-01-13 00:37] VITALS: BP 112/71; O2SAT 95
[2025-01-13 08:18] LABS: CREATININE SERUM 0.87 mg/dL (0.70-1.30); GFR 94.47; MAGNESIUM 1.8 mg/dL (1.8-2.4); PHOSPHOROUS 4.4 mg/dL (2.5-4.9); POTASSIUM 5.1 mEq/L (3.5-5.1)
[2025-01-13 08:51] VITALS: BP 119/81; O2SAT 99
== END 2025-01-13 17:06 | disposition home or self-care (01) | DRG 653 ==
LOC: ER 20:06 → MEDJ 12-03 17:54 → SURH 12-03 17:54 → ICU 12-22 17:44 → SURH 12-28 20:40
PROVIDERS: Colon & Rectal Surgery; General Practice; Internal Medicine; Student in an Organized Health Care Education/Training Program; ADMIT Internal Medicine; ATTEND Internal Medicine
PROC: BW21YZZ Computerized Tomography (CT Scan) of Abdomen and Pelvis using Other Contrast (ICD-10-PCS; 2024-12-02)
PROC: BW21YZZ Computerized Tomography (CT Scan) of Abdomen and Pelvis using Other Contrast (ICD-10-PCS; 2024-12-07)
PROC: B24BYZZ Ultrasonography of Heart with Aorta using Other Contrast (ICD-10-PCS; 2024-12-08)
PROC: 02HV33Z Insertion of Infusion Device into Superior Vena Cava, Percutaneous Approach (ICD-10-PCS; 2024-12-09)
PROC: 4A12X4Z Monitoring of Cardiac Electrical Activity, External Approach (ICD-10-PCS; 2024-12-19)
PROC: 0TBB4ZZ Excision of Bladder, Percutaneous Endoscopic Approach (ICD-10-PCS; principal; 2024-12-21)
PROC: 0WQF4ZZ Repair Abdominal Wall, Percutaneous Endoscopic Approach (ICD-10-PCS; 2024-12-21)
PROC: 0DBP4ZZ Excision of Rectum, Percutaneous Endoscopic Approach (ICD-10-PCS; 2024-12-21)
PROC: 0DTN4ZZ Resection of Sigmoid Colon, Percutaneous Endoscopic Approach (ICD-10-PCS; 2024-12-21)
PROC: 0WBF4ZZ Excision of Abdominal Wall, Percutaneous Endoscopic Approach (ICD-10-PCS; 2024-12-21)
PROC: 0H97XZZ Drainage of Abdomen Skin, External Approach (ICD-10-PCS; 2024-12-21)
PROC: 0D9670Z Drainage of Stomach with Drainage Device, Via Natural or Artificial Opening (ICD-10-PCS; 2024-12-21)
PROC: 3E0G76Z Introduction of Nutritional Substance into Upper GI, Via Natural or Artificial Opening (ICD-10-PCS; 2024-12-21)
PROC: BW21ZZZ Computerized Tomography (CT Scan) of Abdomen and Pelvis (ICD-10-PCS; 2024-12-25)
PROC: 0T9B80Z Drainage of Bladder with Drainage Device, Via Natural or Artificial Opening Endoscopic (ICD-10-PCS; 2024-12-27)
PROC: 8E0ZXY6 Isolation (ICD-10-PCS; 2024-12-30)
PROC: BW21ZZZ Computerized Tomography (CT Scan) of Abdomen and Pelvis (ICD-10-PCS; 2025-01-06)
DX: R39.89 Other symptoms and signs involving the genitourinary system (principal); A41.9 Sepsis, unspecified organism; E84.19 Cystic fibrosis with other intestinal manifestations; K57.92 Diverticulitis of intestine, part unspecified, without perforation or abscess without bleeding; N32.1 Vesicointestinal fistula; N39.0 Urinary tract infection, site not specified; L03.90 Cellulitis, unspecified; R10.9 Unspecified abdominal pain; I10 Essential (primary) hypertension; I27.20 Pulmonary hypertension, unspecified; G47.33 Obstructive sleep apnea (adult) (pediatric); I48.91 Unspecified atrial fibrillation; E66.01 Morbid (severe) obesity due to excess calories; B96.1 Klebsiella pneumoniae [K. pneumoniae] as the cause of diseases classified elsewhere; B96.20 Unspecified Escherichia coli [E. coli] as the cause of diseases classified elsewhere; K52.9 Noninfective gastroenteritis and colitis, unspecified

== ENCOUNTER → 2025-01-16 07:40 | Outpatient (CLI) | payer OTHER ==
[~2025-01-16 07:40] MED LIST: COZAAR50 MG PO; TOPROL XL100 M1 PO
== END | disposition home or self-care (01) ==
LOC: TOM 07:40
PROVIDERS: ATTEND Urology
DX: C61 Malignant neoplasm of prostate (principal)
CPT/HCPCS: 72193; Q9965

== ENCOUNTER 2025-01-16 08:00 | Outpatient (CLI) | payer OTHER | END 2025-01-16 08:15 | disposition home or self-care (01) | LOC: LAB 08:00 | PROVIDERS: ATTEND Urology | DX: N30.00 Acute cystitis without hematuria (principal) ==

== ENCOUNTER 2025-01-21 10:53 | Inpatient (IN) | payer OTHER ==
[~2025-01-21] VITALS: Ht 175.3 cm; Wt 127.0 kg
--- NOTE | 2025-01-21 11:01 | NUR ---
PTE ALERTA Y ORIENTADA X3 LLEGA A ER EN AMBULANCIA. PTE REFIERE QUE TUVO ROBERTO OPERACION DE URACO POR LA DR. ZAKIYA MEZA EL . PTE REFIERE QUE AREA SE ENCUENTRA INFECTADA. SE UBICA EN GISELA AREA DE OBSERVACION.
--- NOTE | 2025-01-21 11:13 | NUR ---
PTE ALERTA Y ORIENTADA X3 LLEGA A ER EN AMBULANCIA. PTE REFIERE QUE TUVO ROBERTO OPERACION DE URACO POR LA DR. JOHN MEZA EL . PTE REFIERE QUE AREA SE ENCUENTRA INFECTADA. SE UBICA EN GISELA AREA DE OBSERVACION.
--- NOTE | 2025-01-21 11:37 | NUR ---
SE ORIENTA A PACIENTE SOBRE ORDEN MEDICA EL MISMO REFIERE ENTENDER Y ACEPTAL.
[2025-01-21 12:17] LABS: HEMATOCRIT 37.8 % (39.0-48.0); HEMOGLOBIN 12.4 g/dL (13-16.00); MEAN CELL VOLUME 85.4 fL (80.0-100.00); MEAN CORPUSCULAR HGB CONC 32.8 g/dl (32.0-36.0); PLATELET COUNT 271 K/uL (150-450); RED BLOOD COUNT 4.43 M/uL (4.00-6.00); RED CELL DISTRIBUTION WIDTH 18.7 % (11.5-14.5)
[2025-01-21 12:41] LABS: INR 1.19; PARTIAL THROMBOPLASTIN TIME 30.7 SECONDS (22.0-34.0); PROTHROMBIN TIME 12.8 SECONDS (9.0-11.5)
[2025-01-21] MEDS ORDERED: PIPERACILLIN/TAZOBACTAM SODIUM 3.375 GM VIAL IV STA (12:44)
[2025-01-21 12:53] LABS: ALBUMIN 2.7 gm/dL (3.4-5.0); BILIRUBIN TOTAL 0.49 mg/dL (0.3-1.2); CALCIUM 8.5 mg/dL (8.5-10.1); CREATININE SERUM 0.96 mg/dL (0.70-1.30); GFR 84.32; GLOBULINA 3.8 G/DL (2.4-3.5); POTASSIUM 4.22 mEq/L (3.5-5.1); TOTAL PROTEIN 6.5 gm/dL (6.4-8.2)
[2025-01-21] MEDS ORDERED: PIPERACILLIN/TAZOBACTAM SODIUM 3.375 GM VIAL IV ONE ×2 (13:33→20:10)
[2025-01-21 15:57] LABS: URINE APPEARANCE Cloudy; URINE BILIRRUBIN Negative (NEGATIVE); URINE BLOOD Moderate; URINE COLOR Yellow; URINE GLUCOSE Negative (NEGATIVE); URINE KETONE Trace (NEGATIVE); URINE LEUKOCYTE Large; URINE NITRATE Positive; URINE PROTEIN 30 (NEGATIVE); URINE UROBILINOGEN 0.2 E.U./dl
[2025-01-21 16:04] LABS: URINE CAST 3.38 uL (0.0-1.40); URINE EPITHELIAL CELLS 13.4 uL (0.0-38.8); URINE RBC 127.7 uL (0.0-20.8); URINE WBC 1763.3 uL (0.0-23.2)
[2025-01-21 16:34] LABS: URINE BACTERIA > 9821.5 uL (0.0-1933); URINE MUCUS MODERATE
[2025-01-21] MEDS ORDERED: hydrOXYzine PAMOATE 25 MG CAPSULE PO SCH (17:42)
[2025-01-21] MEDS ORDERED: 0.9 % SODIUM CHLORIDE 1,000 ML IV SCH (17:45)
[2025-01-21] MEDS ORDERED: ONDANSETRON HCL 4 MG in 0.9 % SODIUM CHLORIDE 50 ML IV PRN (17:45)
[2025-01-21] MEDS ORDERED: ACETAMINOPHEN 500 MG GEL..CAP PO PRN (17:45)
[2025-01-21] MEDS ORDERED: MORPHINE SULFATE 4 MG/ML CARTRIDGE IV PRN (17:45)
[2025-01-21] MEDS ORDERED: ONDANSETRON HCL 4 MG in 0.9 % SODIUM CHLORIDE 50 ML IV ONE (17:45)
[2025-01-21] MEDS ORDERED: PIPERACILLIN/TAZOBACTAM SODIUM 3.375 GM in DEXTROSE 5 % IN WATER 100 ML IV SCH (18:00)
[2025-01-21] MEDS ORDERED: hydrOXYzine PAMOATE 25 MG CAPSULE PO ONE (20:07)
[2025-01-21] MEDS ORDERED: ONDANSETRON HCL 2 MG/ML VIAL ONE (20:08)
[2025-01-21] MEDS ORDERED: ENOXAPARIN SODIUM 100 MG/ML SYRINGE SUBCUTANEO SCH (21:00)
[2025-01-21 21:09] LABS: COVID-19 AG NEGATIVE (NEGATIVE)
[2025-01-21 21:25] VITALS: BP 113/65; O2SAT 96
[2025-01-21 22:07] VITALS: BP 127/95; O2SAT 96
[2025-01-22 00:23] VITALS: BP 136/87; O2SAT 96
[2025-01-22] MEDS ORDERED: LOSARTAN POTASSIUM 25 MG TABLET PO SCH (09:00)
[2025-01-22] MEDS ORDERED: FAMOTIDINE/PF 20 MG in 0.9 % SODIUM CHLORIDE 8 ML IV PUSH SCH (09:00)
[2025-01-22] MEDS ORDERED: METOPROLOL SUCCINATE 25 MG TAB.SR.24H PO SCH (09:00)
[2025-01-22 09:23] VITALS: BP 110/71; O2SAT 98
[2025-01-22] MEDS ORDERED: TAMSULOSIN HCL 0.4 MG CAP PO SCH (10:21)
[2025-01-22] MEDS ORDERED: ONDANSETRON HCL 4 MG in 0.9 % SODIUM CHLORIDE 50 ML IV PRN (15:30)
[2025-01-22 16:00] VITALS: BP 114/73; O2SAT 97
[2025-01-22] MEDS ORDERED: SULFAMETHOXAZOLE/TRIMETHOPRIM DS 1 TAB PO SCH (21:00)
[2025-01-22] MEDS ORDERED: PANTOPRAZOLE SODIUM 40 MG/VIAL VIAL IV SCH (21:00)
[2025-01-22] MEDS ORDERED: CLONAZEPAM 1 MG TABLET PO SCH ×2 (21:00)
[2025-01-23 00:35] VITALS: BP 128/83; O2SAT 95
[2025-01-23 06:54] LABS: HEMATOCRIT 33.2 % (39.0-48.0); MEAN CELL VOLUME 84.4 fL (80.0-100.00); MEAN CORPUSCULAR HEMOGLOBIN 28.1 pg (27.00-32.0); MEAN CORPUSCULAR HGB CONC 33.2 g/dl (32.0-36.0); PLATELET COUNT 257 K/uL (150-450); RED BLOOD COUNT 3.93 M/uL (4.00-6.00)
[2025-01-23 08:00] VITALS: BP 132/84; O2SAT 97
[2025-01-23 16:38] LABS: ALBUMIN 2.6 gm/dL (3.4-5.0); CALCIUM 8.6 mg/dL (8.5-10.1); CREATININE SERUM 1.03 mg/dL (0.70-1.30); GFR 77.75; MAGNESIUM 1.8 mg/dL (1.8-2.4); PHOSPHOROUS 4.4 mg/dL (2.5-4.9); POTASSIUM 4.07 mEq/L (3.5-5.1)
[2025-01-23 16:48] VITALS: BP 115/77; O2SAT 100
[2025-01-24 00:33] VITALS: BP 129/87; O2SAT 94
[2025-01-24 08:00] VITALS: BP 131/89; O2SAT 98
[2025-01-24] MEDS ORDERED: ONDANSETRON HCL 2 MG/ML VIAL ONE (13:01)
[2025-01-24] MEDS ORDERED: MAGNESIUM SULFATE IN WATER 2 GM/50 ML PIGGYBAG IV NR (14:00)
[2025-01-24] MEDS ORDERED: PIPERACILLIN/TAZOBACTAM SODIUM 3.375 GM VIAL IV ONE (18:07)
[2025-01-24 18:46] VITALS: BP 118/84; O2SAT 94
[2025-01-25 00:54] VITALS: BP 114/77; O2SAT 95
[2025-01-25 09:55] VITALS: BP 134/85; O2SAT 96
[2025-01-25 16:00] VITALS: BP 106/72; O2SAT 97
[2025-01-26] VITALS: BP 99/59; O2SAT 95
[2025-01-26 08:00] VITALS: BP 121/83; O2SAT 95
[2025-01-26 17:26] VITALS: BP 118/80; O2SAT 95
[2025-01-26] MEDS ORDERED: PANTOPRAZOLE SODIUM 40 MG TABLET.DR PO SCH (21:00)
[2025-01-27 01:51] VITALS: BP 107/66; O2SAT 98
[2025-01-27 08:00] VITALS: BP 119/84; O2SAT 98
[2025-01-27 09:38] LABS: HEMATOCRIT 35.5 % (39.0-48.0); HEMOGLOBIN 11.5 g/dL (13-16.00); MEAN CELL VOLUME 86.2 fL (80.0-100.00); MEAN CORPUSCULAR HEMOGLOBIN 27.8 pg (27.00-32.0); MEAN CORPUSCULAR HGB CONC 32.3 g/dl (32.0-36.0); PLATELET COUNT 394 K/uL (150-450); RED BLOOD COUNT 4.11 M/uL (4.00-6.00); RED CELL DISTRIBUTION WIDTH 19.1 % (11.5-14.5)
[2025-01-27 10:30] LABS: CALCIUM 8.6 mg/dL (8.5-10.1); CREATININE SERUM 1.1 mg/dL (0.70-1.30); GFR 72.06; MAGNESIUM 2.2 mg/dL (1.8-2.4); PHOSPHOROUS 3.8 mg/dL (2.5-4.9); POTASSIUM 4.41 mEq/L (3.5-5.1)
== END 2025-01-27 16:00 | disposition left against medical advice (07) | DRG 372 ==
LOC: ER 10:53 → SURG 18:07
PROVIDERS: Colon & Rectal Surgery; Emergency Medicine; General Practice; ADMIT Internal Medicine; ATTEND Internal Medicine
PROC: BW21YZZ Computerized Tomography (CT Scan) of Abdomen and Pelvis using Other Contrast (ICD-10-PCS; principal; 2025-01-25)
DX: K65.1 Peritoneal abscess (principal); N32.1 Vesicointestinal fistula; N39.0 Urinary tract infection, site not specified